=== PATIENT | female | born 1970 | race African-American/Black ===

== ENCOUNTER 2016-10-18 16:19 | Emergency (ER) | payer MEDICAID ==
[~2016-10-18] VITALS: Ht 157.5 cm; Wt 111.5 kg
[~2016-10-18 16:19] MED LIST: CLAR10 PO; FERR-43 PO
[2016-10-18] MEDS ORDERED: ASPI-1035 PO (16:36)
[2016-10-18] MEDS ORDERED: SPIR25TA4 PO (16:36)
[2016-10-18] MEDS ORDERED: FURO20TA4 PO (16:36)
[2016-10-18] MEDS ORDERED: GABA-529 PO (16:36)
[2016-10-18] MEDS ORDERED: PANT40TA4 PO (16:36)
[2016-10-18] MEDS ORDERED: DILT120C2 PO (16:36)
[2016-10-18] MEDS ORDERED: LORA10TA7 PO (16:36)
[2016-10-18] MEDS ORDERED: MORPHINE SULFATE 4 MG/ML CPJ (NOT FOR IM USE) IV ONE (17:00)
[2016-10-18 17:03] LABS: BASOPHILS % 0.6 % (0.0-2.0); DIFFERENTIAL COMMENT 0; EOSINOPHILS % 0.6 % (0.0-5.0); HEMATOCRIT. 40.1 % (36.0-48.0); LYMPHOCYTES % 22.2 % (20.0-50.0); MEAN CORPUSCULAR HEMOGLOBIN 24.8 pg (28.0-32.0); MEAN CORPUSCULAR HGB CONC 32.5 g/dL (31.0-37.0); MEAN CORPUSCULAR VOLUME 76.2 fL (81.0-99.0); MONOCYTES % 5.7 % (2.0-8.0); NEUTROPHILS % 70.9 % (40.0-76.0); PLATELET 321 x1000/uL (130-400); RED BLOOD CELL COUNT 5.26 mill/uL (4.2-5.4); RED CELL DISTRIBUTION WIDTH 14.8 % (11.6-14.6); WHITE BLOOD COUNT 14.9 x1000/uL (4.5-11.0)
[2016-10-18 17:10] LABS: INR 1.1; PARTIAL THROMBOPLASTIN TIME 28.3 sec (24.0-34.0); PROTHROMBIN TIME 11.5 sec
[2016-10-18 17:14] LABS: ALANINE AMINOTRANSFERASE 21 IU/L (13-61); ALBUMIN 3.7 g/dL (3.4-5.0); ANION GAP 13; CALCIUM 8.7 mg/dL (8.5-10.1); CARBON DIOXIDE 26 mEq/L (21-32); CHLORIDE 102 mEq/L (98-107); INDEX HEMOLYSI 3 (1-3); INDEX ICTERIC 1 (1-4); INDEX LIPEMIC 1 (1-3); UREA NITROGEN BLOOD 10 mg/dL (7-21); eGFR > 60 mL/min (>60)
[2016-10-18 17:18] LABS: NT PRO B-TYPE NATRIURETIC PEP 124 pg/mL (5-125); TROPONIN I < 0.02 ng/mL (0.00-0.04)
[2016-10-18 18:36] VITALS: BP 125/70
== END 2016-10-18 20:12 | disposition home or self-care (01) ==
LOC: ER 16:20
DX: I35.0 Nonrheumatic aortic (valve) stenosis (principal); I50.9 Heart failure, unspecified; Z79.82 Long term (current) use of aspirin; Z79.899 Other long term (current) drug therapy; Z98.890 Other specified postprocedural states
CPT/HCPCS: 36415; 71010; 80053; 83880; 84484; 85025; 85610; 85730; 96374; 99285; J2270; Z7610